=== PATIENT | male | born 1990 ===

== ENCOUNTER 2018-01-20 18:06 | Emergency (ER) | payer MEDICAID ==
[2018-01-20 18:22] VITALS: BP 120/73; PULSE 67; RESP 18; TEMP 99.1; O2SAT 99
--- NOTE | 2018-01-20 19:27 | C.PDOC ---
History Of Present Illness 27 y/o male presents to the ED complaining of a painful mass over the right eyebrow, gradually developing over the past month. Patient admits to taking antibiotic without improvement. He denies any fever, chills, headache, wound discharge, or visual changes or any other complaints. Time Seen by Provider: 01/20/18 18:26 Chief Complaint (Nursing): Abnormal Skin Integrity History Per: Patient History/Exam Limitations: no limitations Onset/Duration Of Symptoms: Days Current Symptoms Are (Timing): Still Present Location Of Injury: Right: Head Past Medical History Reviewed: Historical Data, Nursing Documentation, Vital Signs Vital Signs: Last Vital Signs Temp 99.1 F 01/20/18 18:21 Pulse 67 01/20/18 18:21 Resp 18 01/20/18 18:21 BP 120/73 01/20/18 18:21 Pulse Ox 99 01/20/18 18:21 - Medical History PMH: No Chronic Diseases Surgical History: No Surg Hx Family History: States: No Known Family Hx - Social History Hx Alcohol Use: Yes Hx Substance Use: No - Immunization History Hx Tetanus Toxoid Vaccination: No Hx Influenza Vaccination: No Hx Pneumococcal Vaccination: No Review Of Systems Except As Marked, All Systems Reviewed And Found Negative. Constitutional: Negative for: Fever, Chills Eyes: Negative for: Vision Change Skin: Positive for: Other (painful mass to right eyebrow). Negative for: Rash Neurological: Negative for: Weakness, Numbness, Headache, Dizziness Physical Exam - Physical Exam Appears: Well, Non-toxic, No Acute Distress Skin: Normal Color, Warm, Other (2 cm tender, soft mass to the right lateral eyebrow, (+) fluctuance, no erythema) Head: Normacephalic Eye(s): bilateral: PERRL, EOMI Ear(s): Bilateral: Normal Nose: Normal, No Discharge, No Deformity, No Tenderness Oral Mucosa: Moist, No Drooling Tongue: Normal Appearing Lips: Normal Appearing Throat: No Erythema, No Exudate, No Drooling Neck: Normal ROM, Trachea Midline, Supple Extremity: Normal ROM Neurological/Psych: Oriented x3, Normal Speech ED Course And Treatment O2 Sat by Pulse Oximetry: 99 (RA) Pulse Ox Interpretation: Normal Progress Note: On re-eval, pt is afebrile, hemodynamicaly stable. Non-toxic. Head: AT/NC. Skin: abscess over lateral aspect Right eyebrow I&D without difficulty. Right eye : intact, no periorbital edema or erythema, no visual changes. NO pain or limitation on extraocular movement. Pt advised on wound care. ref. to F/u with PMD in 1-2 days for re-eval. return if any new changes. - Incision & Drainage Of Abscess Anesthesia: Lidocaine 2% Prep Used: Betadine Procedure: Incised W/Scalpel Blade#: (11), Drained Pus, Irrigated Cavity W/Saline (30ml), Probed To Break Up Loculations Disposition Counseled Patient/Family Regarding: Diagnosis, Need For Followup - Disposition Referrals: [facility] [Outside] Disposition: HOME/ ROUTINE Disposition Time: 19:24 Condition: STABLE Additional Instructions: Keep wound dry for 24 hrs Clean with peroxide daily, cover with band aid Follow up with PMD in2-3 days as for re-evaluation as need return to Ed if any worsening or new changes. Instructions: Abscess Incision and Drainage Forms: [employer] (Cook Islander) Print Language: UZBEK - Clinical Impression Clinical Impression: Abscess - PA / [employer] / Resident Statement MD/DO has reviewed & agrees with the documentation as recorded. - Scribe Statement The provider has reviewed the documentation as recorded by the Scribe (Rashmi Mccabe) All medical record entries made by the Scribe were at my direction and personally dictated by me. I have reviewed the chart and agree that the record accurately reflects my personal performance of the history, physical exam, medical decision making, and the department course for this patient. I have also personally directed, reviewed, and agree with the discharge instructions and disposition.
== END 2018-01-20 19:33 | disposition home or self-care (01) ==
LOC: C.ER 18:06
DX: L02.01 Cutaneous abscess of face (principal)